=== PATIENT | female | born 1945 | race Two or more races ===

== ENCOUNTER 2024-05-09 09:15 | Inpatient (IN) | payer OTHER ==
[~2024-05-09] VITALS: Ht 160 cm; Wt 63.5 kg
[2024-05-09 13:28] LABS: HEMATOCRIT 35.2 % (36.0-45.00); HEMOGLOBIN 11.4 g/dL (12.0-15.00); MEAN CORPUSCULAR HEMOGLOBIN 25.9 pg (27.00-32.0); MEAN CORPUSCULAR HGB CONC 32.4 g/dl (32.0-36.0); PLATELET COUNT 400 K/uL (150-450); RED CELL DISTRIBUTION WIDTH 16.9 % (11.5-14.5)
[2024-05-09 13:35] LABS: PH,URINE 5.5 (5.0-8.0); URINE APPEARANCE Cloudy; URINE BILIRRUBIN Negative (NEGATIVE); URINE BLOOD Negative; URINE COLOR Yellow; URINE GLUCOSE Negative (NEGATIVE); URINE KETONE Trace (NEGATIVE); URINE LEUKOCYTE Negative; URINE NITRATE Negative; URINE PROTEIN Negative (NEGATIVE); URINE UROBILINOGEN 0.2 E.U./dl
[2024-05-09 13:39] LABS: URINE BACTERIA 98.2 uL (0.0-1933); URINE EPITHELIAL CELLS 6.3 uL (0.0-38.8); URINE RBC 6.5 uL (0.0-20.8); URINE WBC 3.3 uL (0.0-23.2)
[2024-05-09 14:00] LABS: INR 0.96; PROTHROMBIN TIME 10.1 SECONDS (9.0-11.5)
[2024-05-09 14:06] LABS: ALBUMIN 3.7 gm/dL (3.4-5.0); BILIRUBIN TOTAL 0.39 mg/dL (0.3-1.2); CALCIUM 9.3 mg/dL (8.5-10.1); CREATININE SERUM 0.53 mg/dL (0.55-1.02); GFR 111.86; GLOBULINA 2.8 G/DL (2.4-3.5); POTASSIUM 4.68 mEq/L (3.5-5.1); TOTAL PROTEIN 6.5 gm/dL (6.4-8.2)
[2024-05-09] MEDS ORDERED: MIRALAX17 GM PO (15:20)
[2024-05-14] MEDS ORDERED: LIDOCAINE HCL 1%/EPINEPHRINE 20ML VIAL IJ SCH (13:45)
[2024-05-14] MEDS ORDERED: BUPIVACAINE HCL 30 ML VIAL IJ SCH (13:45)
[2024-05-14] MEDS ORDERED: CEFTRIAXONE SODIUM 2,000 MG VIAL IV SCH (13:45)
[2024-05-14] MEDS ORDERED: METRONIDAZOLE/SODIUM CHLORIDE 500 MG/100 ML PIGGYBACK IV SCH (13:45)
[2024-05-14] MEDS ORDERED: MORPHINE SULFATE 4 MG/ML CARTRIDGE IV PRN (15:45)
[2024-05-14] MEDS ORDERED: OxyCODONE HCL 5 MG TABLET (ROXICODONE) PO PRN (15:45)
[2024-05-14] MEDS ORDERED: RINGERS SOLUTION,LACTATED 1,000 ML IV SCH (15:45)
[2024-05-14] MEDS ORDERED: ONDANSETRON HCL 2 MG/ML VIAL IV PRN (15:45)
[2024-05-14] MEDS ORDERED: METOCLOPRAMIDE HCL 5 MG/ML VIAL IV SCH (17:00)
[2024-05-14] MEDS ORDERED: GABAPENTIN 300 MG CAPSULE PO SCH (17:00)
[2024-05-14] MEDS ORDERED: HYOSCYAMINE SULFATE 0.125 MG TAB.SUBL SL SCH (17:00)
[2024-05-14] MEDS ORDERED: POLYETHYLENE GLYCOL 3350 17 GM BLIST.PACK PO SCH (17:00)
[2024-05-14 17:29] LABS: HEMOGLOBIN 11.5 g/dL (12.0-15.00); MEAN CELL VOLUME 80.1 fL (80.00-100.00); MEAN CORPUSCULAR HEMOGLOBIN 26.3 pg (27.00-32.0); MEAN CORPUSCULAR HGB CONC 32.9 g/dl (32.0-36.0); PLATELET COUNT 371 K/uL (150-450); RED BLOOD COUNT 4.36 M/uL (4.00-6.00); RED CELL DISTRIBUTION WIDTH 17.4 % (11.5-14.5)
[2024-05-14] MEDS ORDERED: ALBUTEROL SULFATE 3 ML/2.5 MG AMPUL.NEB IH SCH (19:07)
[2024-05-14] MEDS ORDERED: ACETAMINOPHEN 500 MG GEL..CAP PO SCH (20:00)
[2024-05-14] MEDS ORDERED: ENALAPRILAT DIHYDRATE 1.25 MG/ML VIAL IV PRN (20:45)
[2024-05-14] MEDS ORDERED: CELECOXIB 200 MG CAPSULE PO SCH (21:00)
[2024-05-14] MEDS ORDERED: SIMETHICONE 125 MG CAPSULE PO SCH (21:00)
[2024-05-14] MEDS ORDERED: FAMOTIDINE/PF 20 MG/2 ML VIAL IV PUSH SCH (21:00)
[2024-05-15 08:50] LABS: HEMATOCRIT 34.6 % (36.0-45.00); HEMOGLOBIN 11.3 g/dL (12.0-15.00); MEAN CELL VOLUME 79.6 fL (80.00-100.00); MEAN CORPUSCULAR HGB CONC 32.7 g/dl (32.0-36.0); PLATELET COUNT 356 K/uL (150-450); RED BLOOD COUNT 4.35 M/uL (4.00-6.00); RED CELL DISTRIBUTION WIDTH 17.5 % (11.5-14.5)
[2024-05-15 08:52] LABS: ALBUMIN 2.9 gm/dL (3.4-5.0); CALCIUM 8.6 mg/dL (8.5-10.1); CREATININE SERUM 0.58 mg/dL (0.55-1.02); GFR 100.8; MAGNESIUM 2.1 mg/dL (1.8-2.4); PHOSPHOROUS 3.4 mg/dL (2.5-4.9); POTASSIUM 3.99 mEq/L (3.5-5.1)
[2024-05-15] MEDS ORDERED: LACTOBACILLUS ACIDOPHILUS 1 CAP CAP PO SCH (09:00)
[2024-05-15] MEDS ORDERED: ENOXAPARIN SODIUM 40 MG/0.4 ML SYRINGE SUBCUTANEO SCH (17:00)
[2024-05-16 06:26] LABS: HEMATOCRIT 29.6 % (36.0-45.00); HEMOGLOBIN 9.7 g/dL (12.0-15.00); MEAN CELL VOLUME 78.8 fL (80.00-100.00); MEAN CORPUSCULAR HEMOGLOBIN 25.9 pg (27.00-32.0); MEAN CORPUSCULAR HGB CONC 32.9 g/dl (32.0-36.0); PLATELET COUNT 291 K/uL (150-450); RED BLOOD COUNT 3.75 M/uL (4.00-6.00); RED CELL DISTRIBUTION WIDTH 17.4 % (11.5-14.5)
[2024-05-16 06:44] LABS: CALCIUM 8.5 mg/dL (8.5-10.1); CREATININE SERUM 0.54 mg/dL (0.55-1.02); GFR 109.47; MAGNESIUM 2.2 mg/dL (1.8-2.4); PHOSPHOROUS 2.3 mg/dL (2.5-4.9); POTASSIUM 3.97 mEq/L (3.5-5.1)
[2024-05-16] MEDS ORDERED: POTASSIUM PHOS,M-BASIC-D-BASIC 3 MM/ML VIAL IV NR (08:00)
[2024-05-16] MEDS ORDERED: ENOXAPARIN SODIUM 40 MG/0.4 ML SYRINGE SUBCUTANEO SCH (09:00)
[2024-05-16] MEDS ORDERED: SOD FERRIC GLUC COMPLX/SUCROSE 62.5 MG in 0.9 % SODIUM CHLORIDE 50 ML IV SCH (09:00)
[2024-05-16] MEDS ORDERED: FOLIC ACID 1 MG TABLET PO SCH (09:00)
[2024-05-16] MEDS ORDERED: Cyanocobalamin/Mecobalamin 1 TAB.SL SL SCH (09:00)
[2024-05-16] MEDS ORDERED: ALBUTEROL SULFATE 3 ML/2.5 MG AMPUL.NEB IH SCH (09:00)
[2024-05-16] MEDS ORDERED: HYOSCYAMINE0.125 M1 SL (16:16)
[2024-05-16] MEDS ORDERED: GABAPENTIN300 MG PO (16:17)
== END 2024-05-16 17:22 | disposition home or self-care (01) | DRG 331 ==
LOC: SURH 05-14 09:15 → O/R 05-14 09:48 → SURH 05-14 14:45 → SURG 05-14 16:24
PROVIDERS: Internal Medicine Geriatric Medicine; ADMIT Surgery; ATTEND Surgery
PROC: 07BB4ZZ Excision of Mesenteric Lymphatic, Percutaneous Endoscopic Approach (ICD-10-PCS; 2024-05-14)
PROC: 0DNL4ZZ Release Transverse Colon, Percutaneous Endoscopic Approach (ICD-10-PCS; 2024-05-14)
PROC: 0DJD8ZZ Inspection of Lower Intestinal Tract, Via Natural or Artificial Opening Endoscopic (ICD-10-PCS; 2024-05-14)
PROC: 0DTL4ZZ Resection of Transverse Colon, Percutaneous Endoscopic Approach (ICD-10-PCS; principal; 2024-05-14 14:45)
PROC: 3E0F7GC Introduction of Other Therapeutic Substance into Respiratory Tract, Via Natural or Artificial Opening (ICD-10-PCS; 2024-05-15)
DX: C18.4 Malignant neoplasm of transverse colon (principal); D12.3 Benign neoplasm of transverse colon; D64.89 Other specified anemias; R59.0 Localized enlarged lymph nodes; J45.20 Mild intermittent asthma, uncomplicated

== ENCOUNTER 2025-04-01 11:30 | Inpatient (IN) | payer OTHER ==
[~2025-04-01] VITALS: Ht 160 cm; Wt 61.7 kg
[~2025-04-01 11:30] MED LIST: GABAPENTIN300 MG PO; HYOSCYAMINE0.125 M1 SL; MIRALAX17 GM PO
[2025-04-01 14:03] VITALS: BP 170/69
[2025-04-01 14:12] VITALS: BP 154/85
[2025-04-01] MEDS ORDERED: PEPCID AC20 MG (14:17)
[2025-04-01] MEDS ORDERED: DICYCLOMINE HCL20 MG (14:18)
[2025-04-08] MEDS ORDERED: METRONIDAZOLE/SODIUM CHLORIDE 500 MG/100 ML PIGGYBACK IV ONE ×2 (15:30)
[2025-04-08] MEDS ORDERED: CEFTRIAXONE SODIUM 2,000 MG VIAL IV ONE (15:30)
[2025-04-08] MEDS ORDERED: THROMBIN,HU/FIBRINOGEN/CALCIUM 4 ML SYRINGE TOP ONE (15:30)
[2025-04-08] MEDS ORDERED: ONDANSETRON HCL 2 MG/ML VIAL IV PRN (18:15)
[2025-04-08] MEDS ORDERED: 0.9 % SODIUM CHLORIDE 1,000 ML IV SCH (18:15)
[2025-04-08] MEDS ORDERED: DEXTROSE 50 % IN WATER 0.5 G/ML VIAL IV PRN (18:15)
[2025-04-08] MEDS ORDERED: MORPHINE SULFATE 4 MG/ML CARTRIDGE IV PRN (18:15)
[2025-04-08 18:54] LABS: ABG PH 7.364 (7.35-7.45); ABG PO2 98.3 mmHg (80-100); BICARBONATE 23.9 mmol/l (23-25)
[2025-04-08 19:02] LABS: o2 35 %
[2025-04-08 19:02] LABS: BASO % 0.3 % (0.1-1.2); EOS # 0.04 (0.04-0.54); EOS % 0.2 % (0.7-7.0); LYMPH # 3.75 (1.18-3.74); LYMPH % 19.7 % (19.3-53.1); MEAN PLATELET VOLUME 10.90 fl (9.4-12.4); MONO # 0.78 (0.24-0.82); MONO % 4.1 % (4.7-12.5); NEUT # 14.32 (1.56-6.13); NEUT % 75.2 % (34.0-71.1); RED CELL DISTRIBUTION WIDTH 13.9 % (11.6-14.4)
[2025-04-08 19:22] LABS: ALT/SGPT 15.0 U/L (12-78); AST/SGOT 34.0 U/L (15-37); BILIRUBIN TOTAL 0.3 mg/dL (0.3-1.2); BUN CREA RATIO 21.0 (7.0-25.0); CREATININE SERUM 0.48 mg/dL (0.55-1.02); GFR 125.08; GLOBULINA 2.5 G/DL (2.4-3.5); GLUCOSE FASTING 134.0 mg/dL (65-100); OSMOLALITY SERUM 290.0 MOSM/KG (275-295)
[2025-04-08] MEDS ORDERED: SUGAMMADEX SODIUM 200 MG/2 ML VIAL IV ONE (19:45)
[2025-04-08 20:38] LABS: RH POSITIVE
[2025-04-08] MEDS ORDERED: FAMOTIDINE/PF 20 MG/2 ML VIAL IV PUSH SCH (21:00)
[2025-04-08 22:48] VITALS: BP 170/69; O2SAT 100
[2025-04-08 23:20] VITALS: BP 165/81; O2SAT 99
[2025-04-09] VITALS (7 sets, daily range): BP systolic 146–172; BP diastolic 63–77; O2SAT 99–100
[2025-04-09 07:03] LABS: BASO % 0.2 % (0.1-1.2); EOS # 0.00 (0.04-0.54); EOS % 0.0 % (0.7-7.0); LYMPH # 3.90 (1.18-3.74); LYMPH % 14.7 % (19.3-53.1); MEAN PLATELET VOLUME 10.10 fl (9.4-12.4); MONO # 1.03 (0.24-0.82); MONO % 3.9 % (4.7-12.5); NEUT # 21.34 (1.56-6.13); NEUT % 80.7 % (34.0-71.1); RED CELL DISTRIBUTION WIDTH 13.9 % (11.6-14.4)
[2025-04-09 07:26] LABS: BUN CREA RATIO 13.0 (7.0-25.0); CREATININE SERUM 0.64 mg/dL (0.55-1.02); GFR 89.74; GLUCOSE FASTING 125.0 mg/dL (65-100); OSMOLALITY SERUM 285.0 MOSM/KG (275-295)
[2025-04-09] MEDS ORDERED: LACTOBACILLUS ACIDOPHILUS 1 CAP CAP PO SCH (09:00)
[2025-04-09 15:27] LABS: BUN CREA RATIO 14.0 (7.0-25.0); CHOL HDL RATIO 2.7 (0-5.0); CREATININE SERUM 0.64 mg/dL (0.55-1.02); GFR 89.74; GLUCOSE FASTING 101.0 mg/dL (65-100); HDL 40.0 mg/dl (40-60); LDL 51.0 mg/dl (0-130); OSMOLALITY SERUM 288.0 MOSM/KG (275-295); VLDL 17.0 (0-39)
[2025-04-09] MEDS ORDERED: ENOXAPARIN SODIUM 40 MG/0.4 ML SYRINGE SUBCUTANEO SCH (17:00)
[2025-04-09] MEDS ORDERED: AA 5 %/CALCIUM/LYTES/DEXT 20 % 2,000 ML CENTRAL SCH (17:00)
[2025-04-09] MEDS ORDERED: IPRATROPIUM/ALBUTEROL SULFATE 3 ML AMPUL.NEB IH SCH (20:00)
[2025-04-10] VITALS (9 sets, daily range): BP systolic 127–152; BP diastolic 58–69; O2SAT 99–100
[2025-04-10 07:38] LABS: BASO % 0.3 % (0.1-1.2); EOS # 0.34 (0.04-0.54); EOS % 1.9 % (0.7-7.0); LYMPH # 2.99 (1.18-3.74); LYMPH % 16.8 % (19.3-53.1); MEAN PLATELET VOLUME 10.00 fl (9.4-12.4); MONO # 1.12 (0.24-0.82); MONO % 6.3 % (4.7-12.5); NEUT # 13.23 (1.56-6.13); NEUT % 74.3 % (34.0-71.1); RED CELL DISTRIBUTION WIDTH 14.0 % (11.6-14.4)
[2025-04-10 08:22] LABS: ALT/SGPT 12.0 U/L (12-78); AST/SGOT 15.0 U/L (15-37); BILIRUBIN TOTAL 0.36 mg/dL (0.3-1.2); BUN CREA RATIO 24.0 (7.0-25.0); CREATININE SERUM 0.49 mg/dL (0.55-1.02); GFR 122.14; GLOBULINA 2.7 G/DL (2.4-3.5); GLUCOSE FASTING 169.0 mg/dL (65-100); OSMOLALITY SERUM 289.0 MOSM/KG (275-295)
[2025-04-10] MEDS ORDERED: ENOXAPARIN SODIUM 40 MG/0.4 ML SYRINGE SUBCUTANEO SCH (09:00)
[2025-04-10] MEDS ORDERED: DIPHENHYDRAMINE HCL 50 MG/ML VIAL 1ML IV SCH (09:30)
[2025-04-10] MEDS ORDERED: POTASSIUM PHOS,M-BASIC-D-BASIC 15 MM in 0.9 % SODIUM CHLORIDE 250 ML IV ONE (11:00)
[2025-04-10] MEDS ORDERED: PIPERACILLIN/TAZOBACTAM SODIUM 3.375 GM in DEXTROSE 5 % IN WATER 100 ML IV SCH (12:00)
[2025-04-11] VITALS (7 sets, daily range): BP systolic 119–162; BP diastolic 57–91; O2SAT 97–100
[2025-04-11 02:49] LABS: BASO % 0.4 % (0.1-1.2); EOS # 0.50 (0.04-0.54); EOS % 3.5 % (0.7-7.0); LYMPH # 3.68 (1.18-3.74); LYMPH % 25.5 % (19.3-53.1); MEAN PLATELET VOLUME 9.40 fl (9.4-12.4); MONO # 0.87 (0.24-0.82); MONO % 6.0 % (4.7-12.5); NEUT # 9.26 (1.56-6.13); NEUT % 64.2 % (34.0-71.1); RED CELL DISTRIBUTION WIDTH 13.6 % (11.6-14.4)
[2025-04-11] MEDS ORDERED: MORPHINE SULFATE 4 MG/ML CARTRIDGE IV PRN (22:45)
[2025-04-12] VITALS (8 sets, daily range): BP systolic 125–158; BP diastolic 57–85; O2SAT 96–100
[2025-04-12 06:42] LABS: ALT/SGPT 10.0 U/L (12-78); AST/SGOT 7.0 U/L (15-37); BILIRUBIN TOTAL 0.45 mg/dL (0.3-1.2); BUN CREA RATIO 35.0 (7.0-25.0); CREATININE SERUM 0.37 mg/dL (0.55-1.02); GFR 168.9; GLOBULINA 2.8 G/DL (2.4-3.5); GLUCOSE FASTING 159.0 mg/dL (65-100); OSMOLALITY SERUM 288.0 MOSM/KG (275-295)
[2025-04-12] MEDS ORDERED: POTASSIUM CHLORIDE IN WATER 100 ML IV NR (11:00)
[2025-04-13 01:45] VITALS: BP 135/76; O2SAT 96
[2025-04-13 08:15] VITALS: BP 171/97; O2SAT 97
[2025-04-13] MEDS ORDERED: hydrALAZINE HCL 20 MG VIAL IV PRN (11:30)
[2025-04-13 14:49] VITALS: BP 159/80
[2025-04-13 16:00] VITALS: BP 166/94; O2SAT 96
[2025-04-13] MEDS ORDERED: LORazepam 2 MG/ML VIAL IV PRN (17:00)
[2025-04-14 00:53] VITALS: BP 147/74; O2SAT 96
[2025-04-14 07:26] LABS: BASO % 0.5 % (0.1-1.2); EOS # 0.15 (0.04-0.54); EOS % 0.9 % (0.7-7.0); LYMPH # 3.09 (1.18-3.74); LYMPH % 17.6 % (19.3-53.1); MEAN PLATELET VOLUME 9.80 fl (9.4-12.4); MONO # 1.25 (0.24-0.82); MONO % 7.1 % (4.7-12.5); NEUT # 12.86 (1.56-6.13); NEUT % 73.3 % (34.0-71.1); RED CELL DISTRIBUTION WIDTH 14.4 % (11.6-14.4)
[2025-04-14 07:47] LABS: BUN CREA RATIO 43.0 (7.0-25.0); CREATININE SERUM 0.42 mg/dL (0.55-1.02); GFR 145.92; OSMOLALITY SERUM 291.0 MOSM/KG (275-295)
[2025-04-14 08:00] VITALS: BP 151/83; O2SAT 96
[2025-04-14 08:01] LABS: GLUCOSE FASTING 208.0 mg/dL (65-100)
[2025-04-14] MEDS ORDERED: PANTOPRAZOLE SODIUM 40 MG/VIAL VIAL IV SCH (12:00)
[2025-04-14] MEDS ORDERED: PANTOPRAZOLE SODIUM 80 MG in 0.9 % SODIUM CHLORIDE 100 ML IV SCH (12:15)
[2025-04-14 16:00] VITALS: BP 150/83; O2SAT 95
[2025-04-14] MEDS ORDERED: DIPHENHYDRAMINE HCL 50 MG/ML VIAL 1ML IV SCH (21:00)
[2025-04-15] VITALS: BP 146/71; O2SAT 96
[2025-04-15 07:04] LABS: ERYTHROCYTE SEDIMENTATION RATE 66 mm/hr (0-30)
[2025-04-15 07:11] LABS: BASO % 0.7 % (0.1-1.2); EOS # 0.61 (0.04-0.54); EOS % 4.3 % (0.7-7.0); INR 1.11; LYMPH # 3.92 (1.18-3.74); LYMPH % 27.4 % (19.3-53.1); MEAN PLATELET VOLUME 10.20 fl (9.4-12.4); MONO # 1.32 (0.24-0.82); MONO % 9.2 % (4.7-12.5); NEUT # 8.28 (1.56-6.13); NEUT % 57.8 % (34.0-71.1); RED CELL DISTRIBUTION WIDTH 14.5 % (11.6-14.4)
[2025-04-15 07:28] LABS: ALT/SGPT 27.0 U/L (12-78); AST/SGOT 32.0 U/L (15-37); BILIRUBIN TOTAL 0.5 mg/dL (0.3-1.2); BILIRUBIN,CONJUGATED 0.2 mg/dL (0.0-0.2); BUN CREA RATIO 47.0 (7.0-25.0); CHOL HDL RATIO 6.4 (0-5.0); CREATININE SERUM 0.43 mg/dL (0.55-1.02); GFR 142.01; GLOBULINA 2.8 G/DL (2.4-3.5); GLUCOSE FASTING 139.0 mg/dL (65-100); HDL 16.0 mg/dl (40-60); LDL 40.0 mg/dl (0-130); OSMOLALITY SERUM 292.0 MOSM/KG (275-295); VLDL 47.0 (0-39)
[2025-04-15 08:00] VITALS: BP 159/90; O2SAT 97
[2025-04-15 08:53] LABS: UREA CLEARANCE 49.8 ML/MIN
[2025-04-15 16:00] VITALS: BP 154/88; O2SAT 97
[2025-04-16 01:16] VITALS: BP 174/63; O2SAT 96
[2025-04-16 08:00] VITALS: BP 163/86
[2025-04-16 17:14] VITALS: BP 143/72; O2SAT 96
[2025-04-17 02:05] VITALS: BP 137/55; O2SAT 97
[2025-04-17 08:00] VITALS: BP 142/80; O2SAT 96
[2025-04-17 17:25] VITALS: BP 141/81; O2SAT 96
[2025-04-18 01:20] VITALS: BP 137/74; O2SAT 94
[2025-04-18 07:26] LABS: BASO % 0.5 % (0.1-1.2); EOS # 0.32 (0.04-0.54); EOS % 2.9 % (0.7-7.0); LYMPH # 3.74 (1.18-3.74); LYMPH % 33.8 % (19.3-53.1); MEAN PLATELET VOLUME 9.80 fl (9.4-12.4); MONO # 0.93 (0.24-0.82); MONO % 8.4 % (4.7-12.5); NEUT # 5.95 (1.56-6.13); NEUT % 53.9 % (34.0-71.1); RED CELL DISTRIBUTION WIDTH 14.5 % (11.6-14.4)
[2025-04-18 08:00] VITALS: BP 155/84; O2SAT 96
[2025-04-18 08:06] LABS: ALT/SGPT 33.0 U/L (12-78); AST/SGOT 28.0 U/L (15-37); BILIRUBIN TOTAL 0.22 mg/dL (0.3-1.2); BUN CREA RATIO 30.0 (7.0-25.0); CREATININE SERUM 0.44 mg/dL (0.55-1.02); GFR 138.29; GLOBULINA 2.8 G/DL (2.4-3.5); GLUCOSE FASTING 155.0 mg/dL (65-100); OSMOLALITY SERUM 288.0 MOSM/KG (275-295)
[2025-04-18] MEDS ORDERED: SIMETHICONE 125 MG CAPSULE PO SCH (09:00)
[2025-04-18] MEDS ORDERED: METOCLOPRAMIDE HCL 5 MG/ML VIAL IV SCH (09:00)
[2025-04-18] MEDS ORDERED: PIPERACILLIN/TAZOBACTAM SODIUM 3.375 GM in DEXTROSE 5 % IN WATER 100 ML IV SCH (14:00)
[2025-04-18 18:06] VITALS: BP 125/74; O2SAT 96
[2025-04-19 02:12] VITALS: BP 153/82; O2SAT 99
[2025-04-19 07:00] VITALS: BP 141/80; O2SAT 95
[2025-04-19] MEDS ORDERED: DIATRIZOATE MEGLUMINE, SODIUM 30 ML BOTTLE PO NR (09:00)
[2025-04-19 16:00] VITALS: BP 132/81; O2SAT 97
[2025-04-20 01:47] VITALS: BP 136/69; O2SAT 96
[2025-04-20 08:00] VITALS: BP 152/83; O2SAT 97
[2025-04-20] MEDS ORDERED: ANIDULAFUNGIN 100 MG VIAL IV NR (11:15)
[2025-04-20 16:00] VITALS: BP 164/88; O2SAT 98
[2025-04-21 00:36] VITALS: BP 140/79; O2SAT 97
[2025-04-21 09:57] VITALS: BP 183/84; O2SAT 97
[2025-04-21 10:40] VITALS: BP 125/75
[2025-04-21] MEDS ORDERED: ANIDULAFUNGIN 100 MG VIAL IV SCH (12:00)
[2025-04-21 16:00] VITALS: BP 150/87; O2SAT 97
[2025-04-21] MEDS ORDERED: AMINO ACIDS/PROTEIN HYDROLYS 30 ML BLIST.PACK PO SCH (17:00)
[2025-04-22 01:06] VITALS: BP 152/74; O2SAT 96
[2025-04-22 07:03] LABS: BASO % 0.8 % (0.1-1.2); EOS # 0.26 (0.04-0.54); EOS % 2.4 % (0.7-7.0); LYMPH # 4.56 (1.18-3.74); LYMPH % 41.3 % (19.3-53.1); MEAN PLATELET VOLUME 9.40 fl (9.4-12.4); MONO # 0.85 (0.24-0.82); MONO % 7.7 % (4.7-12.5); NEUT # 5.21 (1.56-6.13); NEUT % 47.2 % (34.0-71.1); RED CELL DISTRIBUTION WIDTH 15.0 % (11.6-14.4)
[2025-04-22 07:25] LABS: INR 1.09
[2025-04-22 07:42] LABS: ALT/SGPT 21 U/L (12-78); AST/SGOT 23 U/L (15-37); BILIRUBIN TOTAL 0.33 mg/dL (0.3-1.2); BILIRUBIN,CONJUGATED < 0.10 mg/dL (0.0-0.2); BUN CREA RATIO 16 (7.0-25.0); CHOL HDL RATIO 5.3 (0-5.0); CREATININE SERUM 0.50 mg/dL (0.55-1.02); GFR 119.32; GLOBULINA 2.7 G/DL (2.4-3.5); GLUCOSE FASTING 98 mg/dL (65-100); HDL 28 mg/dl (40-60); LDL 93 mg/dl (0-130); OSMOLALITY SERUM 287 MOSM/KG (275-295); VLDL 27 (0-39)
[2025-04-22 08:00] VITALS: BP 169/88
[2025-04-22 09:57] LABS: UREA CLEARANCE 21.1 ML/MIN
[2025-04-22 16:00] VITALS: BP 154/85; O2SAT 98
[2025-04-23 01:12] VITALS: BP 178/84; O2SAT 97
[2025-04-23 08:40] VITALS: BP 164/81; O2SAT 98
[2025-04-23 16:00] VITALS: BP 156/86; O2SAT 96
[2025-04-23] MEDS ORDERED: FLUCONAZOLE IN NACL,ISO-OSM 400 MG/200 ML PIGGYBAG IV NR (17:00)
[2025-04-24 00:22] VITALS: BP 145/80; O2SAT 96
[2025-04-24 08:45] VITALS: BP 159/78; O2SAT 97
[2025-04-24] MEDS ORDERED: FLUCONAZOLE200 MG PO (13:55)
[2025-04-24] MEDS ORDERED: INTESTINEX680 M1 PO (13:55)
[2025-04-24] MEDS ORDERED: METOCLOPRAMIDE10 MG PO (13:55)
[2025-04-24] MEDS ORDERED: PROTONIX40 MG PO (13:55)
[2025-04-24] MEDS ORDERED: FLUCONAZOLE IN NACL,ISO-OSM 200 MG/100 ML PIGGYBAG IV SCH (17:00)
== END 2025-04-24 15:54 | disposition home or self-care (01) | DRG 327 ==
LOC: O/R 04-08 09:54 → SURH 04-08 11:30 → SURG 04-08 18:14 → O/R 04-08 19:10 → ICU 04-08 22:06 → SURH 04-12 17:58 → O/R 04-15 09:48 → SURH 04-15 09:49
PROVIDERS: Anesthesiology; Internal Medicine; Internal Medicine Infectious Disease; Surgery; ADMIT Surgery; ATTEND Surgery
PROC: 0DB60ZZ Excision of Stomach, Open Approach (ICD-10-PCS; principal; 2025-04-09)
PROC: 0FBG0ZZ Excision of Pancreas, Open Approach (ICD-10-PCS; 2025-04-09)
PROC: 0DBA0ZZ Excision of Jejunum, Open Approach (ICD-10-PCS; 2025-04-09)
PROC: 0DQ90ZZ Repair Duodenum, Open Approach (ICD-10-PCS; 2025-04-09)
PROC: 0DNU0ZZ Release Omentum, Open Approach (ICD-10-PCS; 2025-04-09)
PROC: 0DJD4ZZ Inspection of Lower Intestinal Tract, Percutaneous Endoscopic Approach (ICD-10-PCS; 2025-04-09)
PROC: 0DTF0ZZ Resection of Right Large Intestine, Open Approach (ICD-10-PCS; 2025-04-09)
PROC: 05H633Z Insertion of Infusion Device into Left Subclavian Vein, Percutaneous Approach (ICD-10-PCS; 2025-04-09)
PROC: 30243N1 Transfusion of Nonautologous Red Blood Cells into Central Vein, Percutaneous Approach (ICD-10-PCS; 2025-04-10)
PROC: 0WQF0ZZ Repair Abdominal Wall, Open Approach (ICD-10-PCS; 2025-04-19)
PROC: BW21YZZ Computerized Tomography (CT Scan) of Abdomen and Pelvis using Other Contrast (ICD-10-PCS; 2025-04-19)
DX: C18.4 Malignant neoplasm of transverse colon (principal); C16.9 Malignant neoplasm of stomach, unspecified; C17.1 Malignant neoplasm of jejunum; K91.71 Accidental puncture and laceration of a digestive system organ or structure during a digestive system procedure; T81.44XA Sepsis following a procedure, initial encounter; K91.89 Other postprocedural complications and disorders of digestive system; K56.7 Ileus, unspecified; D62 Acute posthemorrhagic anemia; C77.2 Secondary and unspecified malignant neoplasm of intra-abdominal lymph nodes; R59.0 Localized enlarged lymph nodes; K43.9 Ventral hernia without obstruction or gangrene; I10 Essential (primary) hypertension; E87.6 Hypokalemia